=== PATIENT | female | born 1950 | race Caucasian/White ===

== ENCOUNTER 2016-03-24 06:00 | Emergency (ER) | payer OTHER ==
[~2016-03-24] VITALS: Ht 157.5 cm; Wt 72.6 kg
[2016-03-24 06:03] VITALS: BP 158/100
--- NOTE | 2016-03-24 06:03 | NUR ---
PT PLACED IN BED 4 BY EMS.
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
--- NOTE | 2016-03-24 06:27 | NUR ---
FAMILY AT BEDSIDE
--- NOTE | 2016-03-24 06:40 | NUR ---
Dr. Rios evaluating patient at bedside.
[2016-03-24] MEDS ORDERED: IBUPROFEN 400 MG TAB PO ONE (07:00)
--- NOTE | 2016-03-24 07:11 | NUR ---
Pt report given to [facility]. Transfer of care at this time.
[2016-03-24 07:31] VITALS: BP 147/72
--- NOTE | 2016-03-24 07:31 | NUR ---
Patient discharged with v/s stable. Written and verbal after care instructions given and explained. Patient alert, oriented and verbalized understanding of instructions. Ambulatory with steady gait. All questions addressed prior to discharge. ID band removed. Patient advised to follow up with PMD. Rx of IBUPROFEN 400MG given. Patient educated on indication of medication including possible reaction and side effects. Opportunity to ask questions provided and answered.
== END 2016-03-24 07:31 | disposition home or self-care (01) ==
LOC: MED 06:00
DX: S43.402A Unspecified sprain of left shoulder joint, initial encounter (principal); S43.401A Unspecified sprain of right shoulder joint, initial encounter; S13.9XXA Sprain of joints and ligaments of unspecified parts of neck, initial encounter; I10 Essential (primary) hypertension; V89.2XXA Person injured in unspecified motor-vehicle accident, traffic, initial encounter; Y93.89 Activity, other specified; Y92.89 Other specified places as the place of occurrence of the external cause; Y99.8 Other external cause status